=== PATIENT | male | born 1995 | race Caucasian/White ===

== ENCOUNTER 2022-08-08 17:17 | Emergency (ER) | payer MEDICAID, SELFPAY ==
--- NOTE | ~2022-08-08 | US_ITS ---
EXAMINATION: US SCROTUM CLINICAL INFORMATION: Scrotal pain. COMPARISON: None TECHNIQUE: A sonogram of the scrotum was performed assessing darby-scale appearance and color Doppler flow. Spectral Doppler analysis of the arterial and venous flow were performed in the testes bilaterally. FINDINGS: RIGHT: Right testicle measures 3.9 x 1.8 x 2.4 cm, volume 8.9 mL. No focal testicular parenchymal lesions are visualized. Spectral Doppler analysis of the arterial and venous flow is normal in the right testis. Right epididymal head is normal in size. There is a 0.2 cm right epididymal head cyst. No right hydrocele or varicocele is seen. Right epididymal Doppler flow is normal. LEFT: Left testicle measures 4.0 x 1.9 x 2.2 cm, volume 8.4 mL. No focal testicular parenchymal lesions are visualized. Spectral Doppler analysis of the arterial and venous flow is normal in the left testis. Left epididymal head is normal in size. No left hydrocele or varicocele is seen. Left epididymal Doppler flow is normal. US/US scrotum doppler IMPRESSION: No acute findings identified.
--- NOTE | ~2022-08-08 | US_ITS ---
EXAMINATION: US SCROTUM CLINICAL INFORMATION: Scrotal pain. COMPARISON: None TECHNIQUE: A sonogram of the scrotum was performed assessing darby-scale appearance and color Doppler flow. Spectral Doppler analysis of the arterial and venous flow were performed in the testes bilaterally. FINDINGS: RIGHT: Right testicle measures 3.9 x 1.8 x 2.4 cm, volume 8.9 mL. No focal testicular parenchymal lesions are visualized. Spectral Doppler analysis of the arterial and venous flow is normal in the right testis. Right epididymal head is normal in size. There is a 0.2 cm right epididymal head cyst. No right hydrocele or varicocele is seen. Right epididymal Doppler flow is normal. LEFT: Left testicle measures 4.0 x 1.9 x 2.2 cm, volume 8.4 mL. No focal testicular parenchymal lesions are visualized. Spectral Doppler analysis of the arterial and venous flow is normal in the left testis. Left epididymal head is normal in size. No left hydrocele or varicocele is seen. Left epididymal Doppler flow is normal. US/US scrotum IMPRESSION: No acute findings identified.
--- NOTE | ~2022-08-08 | CT_ITS ---
EXAMINATION: CT ABDOMEN AND PELVIS WITH CONTRAST CLINICAL INFORMATION: Rectal pain COMPARISON: None TECHNIQUE: Multidetector volumetric images were obtained from the superior aspect of the liver through the pubic symphysis following administration 85 mL of Omnipaque 350 intravenous contrast. Sagittal and coronal reformatted images were obtained on the technologist's workstation. Oral contrast: No This CT examination was performed using dose optimization techniques as appropriate, variously including the following: *Automated exposure control *Adjustment of mA and/or kV according to patient size (this includes techniques or standardized protocols for targeted exams where dose is matched to indication/reason for exam; i.e. extremities or head) *Use of iterative reconstruction technique DLP: 621 mGy-cm FINDINGS: LUNG BASES: The visualized lung bases are unremarkable. LIVER, GALLBLADDER, AND BILIARY TREE: The liver is normal in size, shape, and attenuation. No focal hepatic lesion or biliary ductal dilatation is present. The gallbladder is unremarkable with no evidence of radiopaque gallstones, gallbladder wall thickening, or obvious pericholecystic inflammatory changes. PANCREAS: Unremarkable. SPLEEN: Unremarkable. ADRENAL GLANDS: Unremarkable. KIDNEYS AND URETERS: The kidneys are normal in size, shape, and attenuation. No hydronephrosis, hydroureter, or calculi seen. No perinephric stranding. BLADDER: Unremarkable. GASTROINTESTINAL TRACT: No evidence of bowel obstruction or significant wall thickening. The appendix is nondilated. No free fluid or free air is seen. ABDOMINAL WALL: No significant hernia is appreciated. LYMPH NODES: Normal. VASCULAR: Unremarkable. PELVIC VISCERA: Unremarkable. OSSEOUS STRUCTURES: Unremarkable. CT/CT abdomen pelvis w IV con IMPRESSION: No acute findings identified in the abdomen/pelvis.
[2022-08-08 17:52] VITALS: BP 136/74; PULSE 78; RESP 16; TEMP 36.4; O2SAT 97; BMI 25.8
--- NOTE | 2022-08-08 17:55 | ED_ITS ---
HPI - General Adult General Chief complaint: General Medical <RAJESH Gibbs Last Filed: 08/14/22 12:36> Stated complaint: pain/ tenderness in prostrate area <ARJESH Gibbs Last Filed: 08/14/22 12:36> Time Seen by Provider: 08/09/22 00:26 <RAJESH Gibbs Last Filed: 08/14/22 12:36> Source: patient <RAJESH Otoole Last Filed: 08/09/22 01:04> Mode of arrival: ambulatory <RAJESH Otoole Last Filed: 08/09/22 01:04> Limitations: no limitations <RAJESH Otoole Last Filed: 08/09/22 01:04> History of Present Illness HPI narrative: This is a 26-year-old male to female transgender, anxiety, depression presenting to the emergency department with pain to rectum and pain to genital area that started suddenly about a week ago has been progressively worsening. Describes pain that is worse at night. She tells me that her rectal pain is very uncomfortable to palpation, she tells me it is very uncomfortable when she hits bumps in the road. Reports diffuse pain and discomfort to entire genital region. Patient reports that it just does not feel right down there. Patient currently did receiving estradiol every 5 days. Reports urinary frequency, urgency and dysuria. Denies fevers, chills, flank pain, nausea, vomiting, abdominal pain, headache, vision changes, dizziness, chest pain, shortness of breath. Patient denies any foreign bodies and rectum <RAJESH Otoole Last Filed: 08/09/22 01:04> Related Data Allergies/adverse reactions: Allergies Allergy/AdvReac Type Severity Reaction Status Date / Time No Known Allergies Allergy Verified 08/08/22 17:49 <RAJESH Gibbs Last Filed: 08/14/22 12:36> Review of Systems Review of Systems: Constitutional : No Weight loss, No Fever, No Chills, No Fatigue, No Malaise ENT/Mouth : No sore throat, No Rhinorrhea Eyes: No Eye Pain, No Swelling, No Redness Cardiovascular : No Chest Pain, No SOB, No Dyspnea on Exertion, No Orthopnea, No Edema, No Palpitations Respiratory : No Cough, No Sputum, No Wheezing Gastrointestinal : No Nausea, No Vomiting, No Diarrhea, No Constipation, No abdominal Pain, No Hematochezia, No Melena Genitourinary : No Dysuria, No Urinary Frequency, No Hematuria, + peritoneal pain, + rectal pain Musculoskeletal : No joint pain, No Myalgias, No Joint Swelling Skin : No Skin Lesions, No rash Neuro : No Weakness, No Numbness, No Dizziness, No Headache Psych : No Anxiety/Panic, No Depression All other systems reviewed and are negative <RAJESH Otoole - Last Filed: 08/09/22 01:04> Yes all other systems are reviewed and are negative <RAJESH Otoole - Last Filed: 08/09/22 01:04> REPLACED BY [facility] Past Medical History Attestation statement: The following information was validated with the patient. <RAJESH Otoole - Last Filed: 08/09/22 01:04> Source: old records reviewed and nursing notes reviewed <RAJESH Otoole - Last Filed: 08/09/22 01:04> Social History Social History: Social History Smoked in Last 30 Days: No Use of substances other than those prescribed or required for medical reasons: No Advance Directives: No Advance Directives Information Provided: Yes <RAJESH Gibbs - Last Filed: 08/14/22 12:36> Physical Exam ED Vital Signs: Vital Signs - 24 hr 08/08/22 17:52 08/09/22 00:52 Temperature 97.5 F 98.0 F Pulse Rate 78 71 Respiratory Rate 16 17 Blood Pressure 136/74 117/69 Pulse Oximetry 97 99 Oxygen Delivery Method Room Air Room Air BMI result Body Mass Index 25.8 <RAJESH Gibbs - Last Filed: 08/14/22 12:36> Vital Signs - 24 hr 08/08/22 17:52 08/09/22 00:52 Temperature 97.5 F 98.0 F Pulse Rate 78 71 Respiratory Rate 16 17 Blood Pressure 136/74 117/69 Pulse Oximetry 97 99 Oxygen Delivery Method Room Air Room Air BMI result Body Mass Index 25.8 vss <RAJESH Otoole - Last Filed: 08/09/22 01:04> Appearance: Alert.? Oriented X3.? No acute distress.? Head: Normocephalic, atraumatic, no step-offs or deformities Eyes: Pupils equal, round and reactive to light.? ENT: Pharynx normal.? Neck: Normal inspection.? Neck supple.? CVS: Normal heart rate and rhythm.? Pulses normal.? Respiratory: No respiratory distress.? Breath sounds normal.? Abdomen: Soft and nontender.? Skin: Skin warm and dry.? Normal skin color.? Normal skin turgor.? Extremities: No lower extremity edema.? No calf ttp. 5/5 strength to bilateral upper and lower extremities Sensitive exam: With normal male external genitalia, tenderness to palpation to bilateral epididymis, scrotum, penile shaft. No overlying skin changes. Normal rectal exam. No hemorrhoids internally or externally, no overlying lesions. Back: No midline tenderness, no C-spine tenderness, full range of motion, no CVA tenderness bilaterally Neuro: Oriented X 3.? No motor deficit.? No sensory deficit. CN 2-12 intact <RAJESH Otoole - Last Filed: 08/09/22 01:04> Course Course Course Narrative: RME: 26 yold transfemale patient presents to the ED for rectal pain, dysuria, perinuem pain. feels like pain in prostate. patient wants to be called KIT. Not able to do physical exam in the triage. uA ordered. <RAJESH Gibbs - Last Filed: 08/14/22 12:36> Reevaluation(s) Reevaluation #1: Patient's urine is clean. CBC unremarkable. Chemistry pending. Sign out given [facility] doctor Dr. Alonso <RAJESH Otoole - Last Filed: 08/09/22 01:04> Time: 01:04 <RAJESH Otoole - Last Filed: 08/09/22 01:04> Medications Administered Discontinued Medications Generic Name Dose Route Start Last Admin Trade Name Freq PRN Reason Stop Dose Admin Iohexol 85 ml 08/09/22 01:49 08/09/22 01:50 Iohexol 350 Mg/Ml 100 Ml Infus..Btl IV 08/09/22 01:50 85 ml ONCE ONE Administration Ketorolac Tromethamine 30 mg 08/09/22 01:02 08/09/22 01:45 Ketorolac Tromethamine 15 Mg/Ml Vial IVPUSH 08/09/22 01:03 30 mg ONCE ONE Administration <RAJESH Gibbs Last Filed: 08/14/22 12:36> Medications Administered Discontinued Medications Generic Name Dose Route Start Last Admin Trade Name Kenroy PRN Reason Stop Dose Admin Iohexol 85 ml 08/09/22 01:49 08/09/22 01:50 Iohexol 350 Mg/Ml 100 Ml Infus..Btl IV 08/09/22 01:50 85 ml ONCE ONE Administration Ketorolac Tromethamine 30 mg 08/09/22 01:02 08/09/22 01:45 Ketorolac Tromethamine 15 Mg/Ml Vial IVPUSH 08/09/22 01:03 30 mg ONCE ONE Administration <RAJESH Otoole Last Filed: 08/09/22 01:04> Medical Decision Making Medical Decision Making [facility] Narrative: [id number] 26-year-old male to female transgender presents with pain to scrotum, rectal pain, pain to penis times a week worsening. Physical exam significant with tenderness to palpation of scrotum, penis, epididymis bilaterally. Rectal discomfort with palpation denies. No other findings on rectal exam Concerns for possible UTI versus epididymitis. History and physical examination less concerning for torsion. Will obtain gonorrhea and chlamydia test at this time as well. Plan at this time basic labs, imaging, urine, basic STD testing. <RAJESH Otoole Last Filed: 08/09/22 01:04> Differential Diagnosis Differential Diagnoses: The differential diagnosis associated with the presentation includes <RAJESH Otoole Last Filed: 08/09/22 01:04> Concerns for possible UTI versus epididymitis. History and physical ex amination less concerning for torsion. Will obtain gonorrhea and chlamydia test at this time as well. <RAJESH Otoole Last Filed: 08/09/22 01:04> Admission/Observation Consideration of admission/observation: Escalation of care including admission/observation considered <RAJESH Otoole Last Filed: 08/09/22 01:04> Lab Data Result Diagrams: 08/09/22 00:41 08/09/22 00:41 <RAJESH Gibbs - Last Filed: 08/14/22 12:36> Labs: Lab Results 08/09/22 08/09/22 08/09/22 Range/Units 00:41 00:41 00:41 WBC 8.2 (4.8-10.8) X10*3/uL RBC 4.74 (4.60-5.80) X10*6/uL Hgb 13.7 L (14.0-18.0) g/dl Hct 39.0 L (42.0-52.0) % MCV 82.3 (80.0-98.0) fL MCH 28.9 (27.0-33.0) pg MCHC 35.1 (31.0-36.0) g/dl RDW 11.8 (11.0-16.0) % Plt Count 245 (160-400) X10*3/uL MPV 9.2 L (9.4-12.4) fL Immature Gran % (Auto) 0.4 (0.0-0.4) % Neut % (Auto) 72.4 (45-73) % Lymph % (Auto) 17.3 L (20-40) % [place] % (Auto) 8.0 (2-11) % Eos % (Auto) 1.7 (0-4) % Baso % (Auto) 0.2 (0-2) % Lymph # (Auto) 1.4 (1.2-4.9) X10*3/uL [place] # (Auto) 0.7 (0.1-1.2) X10*3/uL Eos # (Auto) 0.1 (0.0-0.4) X10*3/uL Baso # (Auto) 0.0 (0.0-0.2) X10*3/uL Abs Immat Gran (auto) 0.03 (0.00-0.03) X10*3/uL Absolute Neuts (auto) 6.0 (2.0-8.3) x10*3/uL Absolute Nucleated RBC 0.000 (0.0-0.012) X10*3/uL Nucleated RBC % (auto) 0.0 (0.0-0.2) /100WBC Sodium 138 (135-145) mmol/L Potassium 3.4 (3.3-5.1) mmol/L Chloride 104 (96-108) mmol/L Carbon Dioxide 25 (22-29) mmol/L Anion Gap 12 (12-20) BUN 13 (9-16) mg/dL Creatinine 1.03 (0.5-1.4) mg/dL Estim Creat Clear Calc 106.7 Estimated GFR > 60 Random Glucose 116 H (60-115) mg/dL Calcium 8.8 (8.4-10.2) mg/dL Magnesium 2.0 (1.6-2.6) mg/dL Total Bilirubin 0.4 (0.0-1.0) mg/dL AST 15 (5-37) U/L ALT 12 (0-40) U/L Alkaline Phosphatase 69 (39-117) U/L Total Protein 6.6 (6.5-8.0) g/dL Albumin 4.2 (3.5-5.0) g/dL Lipase 18 (8-78) U/L Urine Color Urine Appearance Urine pH (5.0-9.0) Ur Specific [place] (1.005-1.025) Urine Protein (Neg-Trace) mg/dL Urine Glucose (UA) (Negative) mg/dL Urine Ketones (Negative) mg/dL Urine Blood (Negative) Urine Nitrite (Negative) Ur Leukocyte Esterase (Negative) Chlam trachomat DNA PCR (Not Detect.) COVID-19 (KANDI) Negative (Negative) COVID-19 Clin Com See Note N.gonorrhoeae DNA (PCR) (Not Detect.) 08/09/22 08/09/22 08/09/22 Range/Units 00:41 01:02 01:02 WBC (4.8-10.8) X10*3/uL RBC (4.60-5.80) X10*6/uL Hgb (14.0-18.0) g/dl Hct (42.0-52.0) % MCV (80.0-98.0) fL MCH (27.0-33.0) pg MCHC (31.0-36.0) g/dl RDW (11.0-16.0) % Plt Count (160-400) X10*3/uL MPV (9.4-12.4) fL Immature Gran % (Auto) (0.0-0.4) % Neut % (Auto) (45-73) % Lymph % (Auto) (20-40) % [place] % (Auto) (2-11) % Eos % (Auto) (0-4) % Baso % (Auto) (0-2) % Lymph # (Auto) (1.2-4.9) X10*3/uL [place] # (Auto) (0.1-1.2) X10*3/uL Eos # (Auto) (0.0-0.4) X10*3/uL Baso # (Auto) (0.0-0.2) X10*3/uL Abs Immat Gran (auto) (0.00-0.03) X10*3/uL Absolute Neuts (auto) (2.0-8.3) x10*3/uL Absolute Nucleated RBC (0.0-0.012) X10*3/uL Nucleated RBC % (auto) (0.0-0.2) /100WBC Sodium (135-145) mmol/L Potassium (3.3-5.1) mmol/L Chloride (96-108) mmol/L Carbon Dioxide (22-29) mmol/L Anion Gap (12-20) BUN (9-16) mg/dL Creatinine (0.5-1.4) mg/dL Estim Creat Clear Calc Estimated GFR Random Glucose (60-115) mg/dL Calcium (8.4-10.2) mg/dL Magnesium (1.6-2.6) mg/dL Total Bilirubin (0.0-1.0) mg/dL AST (5-37) U/L ALT (0-40) U/L Alkaline Phosphatase (39-117) U/L Total Protein (6.5-8.0) g/dL Albumin (3.5-5.0) g/dL Lipase (8-78) U/L Urine Color Yellow Yellow Urine Appearance Clear Clear Urine pH 5.5 5.5 (5.0-9.0) Ur Specific [place] 1.025 1.025 (1.005-1.025) Urine Protein Negative Negative (Neg-Trace) mg/dL Urine Glucose (UA) Negative Negative (Negative) mg/dL Urine Ketones Negative Negative (Negative) mg/dL Urine Blood Negative Negative (Negative) Urine Nitrite Negative Negative (Negative) Ur Leukocyte Esterase Negative Negative (Negative) Chlam trachomat DNA PCR NOT DETECTED (Not Detect.) COVID-19 (KANDI) (Negative) COVID-19 Clin Com N.gonorrhoeae DNA (PCR) NOT DETECTED (Not Detect.) <RAJESH Gibbs - Last Filed: 08/14/22 12:36> Lab Results 08/09/22 08/09/22 08/09/22 Range/Units 00:41 00:41 00:41 WBC 8.2 (4.8-10.8) X10*3/uL RBC 4.74 (4.60-5.80) X10*6/uL Hgb 13.7 L (14.0-18.0) g/dl Hct 39.0 L (42.0-52.0) % MCV 82.3 (80.0-98.0) fL MCH 28.9 (27.0-33.0) pg MCHC 35.1 (31.0-36.0) g/dl RDW 11.8 (11.0-16.0) % Plt Count 245 (160-400) X10*3/uL MPV 9.2 L (9.4-12.4) fL Immature Gran % (Auto) 0.4 (0.0-0.4) % Neut % (Auto) 72.4 (45-73) % Lymph % (Auto) 17.3 L (20-40) % [place] % (Auto) 8.0 (2-11) % Eos % (Auto) 1.7 (0-4) % Baso % (Auto) 0.2 (0-2) % Lymph # (Auto) 1.4 (1.2-4.9) X10*3/uL [place] # (Auto) 0.7 (0.1-1.2) X10*3/uL Eos # (Auto) 0.1 (0.0-0.4) X10*3/uL Baso # (Auto) 0.0 (0.0-0.2) X10*3/uL Abs Immat Gran (auto) 0.03 (0.00-0.03) X10*3/uL Absolute Neuts (auto) 6.0 (2.0-8.3) x10*3/uL Absolute Nucleated RBC 0.000 (0.0-0.012) X10*3/uL Nucleated RBC % (auto) 0.0 (0.0-0.2) /100WBC Sodium 138 (135-145) mmol/L Potassium 3.4 (3.3-5.1) mmol/L Chloride 104 (96-108) mmol/L Carbon Dioxide 25 (22-29) mmol/L Anion Gap 12 (12-20) BUN 13 (9-16) mg/dL Creatinine 1.03 (0.5-1.4) mg/dL Estim Creat Clear Calc 106.7 Estimated GFR > 60 Random Glucose 116 H (60-115) mg/dL Calcium 8.8 (8.4-10.2) mg/dL Magnesium 2.0 (1.6-2.6) mg/dL Total Bilirubin 0.4 (0.0-1.0) mg/dL AST 15 (5-37) U/L ALT 12 (0-40) U/L Alkaline Phosphatase 69 (39-117) U/L Total Protein 6.6 (6.5-8.0) g/dL Albumin 4.2 (3.5-5.0) g/dL Lipase 18 (8-78) U/L Urine Color Urine Appearance Urine pH (5.0-9.0) Ur Specific [place] (1.005-1.025) Urine Protein (Neg-Trace) mg/dL Urine Glucose (UA) (Negative) mg/dL Urine Ketones (Negative) mg/dL Urine Blood (Negative) Urine Nitrite (Negative) Ur Leukocyte Esterase (Negative) Chlam trachomat DNA PCR (Not Detect.) COVID-19 (KANDI) Negative (Negative) COVID-19 Clin Com See Note N.gonorrhoeae DNA (PCR) (Not Detect.) 08/09/22 08/09/22 08/09/22 Range/Units 00:41 01:02 01:02 WBC (4.8-10.8) X10*3/uL RBC (4.60-5.80) X10*6/uL Hgb (14.0-18.0) g/dl Hct (42.0-52.0) % MCV (80.0-98.0) fL MCH (27.0-33.0) pg MCHC (31.0-36.0) g/dl RDW (11.0-16.0) % Plt Count (160-400) X10*3/uL MPV (9.4-12.4) fL Immature Gran % (Auto) (0.0-0.4) % Neut % (Auto) (45-73) % Lymph % (Auto) (20-40) % [place] % (Auto) (2-11) % Eos % (Auto) (0-4) % Baso % (Auto) (0-2) % Lymph # (Auto) (1.2-4.9) X10*3/uL [place] # (Auto) (0.1-1.2) X10*3/uL Eos # (Auto) (0.0-0.4) X10*3/uL Baso # (Auto) (0.0-0.2) X10*3/uL Abs Immat Gran (auto) (0.00-0.03) X10*3/uL Absolute Neuts (auto) (2.0-8.3) x10*3/uL Absolute Nucleated RBC (0.0-0.012) X10*3/uL Nucleated RBC % (auto) (0.0-0.2) /100WBC Sodium (135-145) mmol/L Potassium (3.3-5.1) mmol/L Chloride (96-108) mmol/L Carbon Dioxide (22-29) mmol/L Anion Gap (12-20) BUN (9-16) mg/dL Creatinine (0.5-1.4) mg/dL Estim Creat Clear Calc Estimated GFR Random Glucose (60-115) mg/dL Calcium (8.4-10.2) mg/dL Magnesium (1.6-2.6) mg/dL Total Bilirubin (0.0-1.0) mg/dL AST (5-37) U/L ALT (0-40) U/L Alkaline Phosphatase (39-117) U/L Total Protein (6.5-8.0) g/dL Albumin (3.5-5.0) g/dL Lipase (8-78) U/L Urine Color Yellow Yellow Urine Appearance Clear Clear Urine pH 5.5 5.5 (5.0-9.0) Ur Specific [place] 1.025 1.025 (1.005-1.025) Urine Protein Negative Negative (Neg-Trace) mg/dL Urine Glucose (UA) Negative Negative (Negative) mg/dL Urine Ketones Negative Negative (Negative) mg/dL Urine Blood Negative Negative (Negative) Urine Nitrite Negative Negative (Negative) Ur Leukocyte Esterase Negative Negative (Negative) Chlam trachomat DNA PCR NOT DETECTED (Not Detect.) COVID-19 (KANDI) (Negative) COVID-19 Clin Com N.gonorrhoeae DNA (PCR) NOT DETECTED (Not Detect.) <RAJESH Otoole - Last Filed: 08/09/22 01:04> Core Measures AMI core measures followed: Yes <RAJESH Otoole - Last Filed: 08/09/22 01:04> Measure exclusions: not indicated <RAJESH Otoole - Last Filed: 08/09/22 01:04> Critical Care Time Critical Care Time Critical Care Time: No <RAJESH Otoole - Last Filed: 08/09/22 01:04> Discharge Plan Discharge Clinical Impression: Pain of male genitalia, Dysuria <RAJESH Gibbs - Last Filed: 08/14/22 12:36> Patient Disposition: Home, Self-Care <RAJESH Gibbs - Last Filed: 08/14/22 12:36> Instructions: Scrotal Pain (ED) <RAJESH Gibbs - Last Filed: 08/14/22 12:36> Additional Instructions: cause of your pain is not clear Your CT scan and ultrasounds are normal Follow-up with nutrition technician and Urology Ibuprofen or pain <RAJESH Gibbs - Last Filed: 08/14/22 12:36> Referrals: Adelso Cadena MD [Physician] - 1 week Tong Dobbins [Physician] - 1 week <RAJESH Gibbs - Last Filed: 08/14/22 12:36> Interventions: ED Discharge Assessment Last Done: 08/09/22 03:16 <RAJESH Gibbs Last Filed: 08/14/22 12:36> Discharge Date/Time: 08/09/22 03:18 <RAJESH Gibbs - Last Filed: 08/14/22 12:36>
[2022-08-09 00:48] LABS: MANUAL DIFF FLAG NO
[2022-08-09 00:51] LABS: Appearance Urine Clear; Color Urine Yellow; Glucose Urine UA Negative (Negative); Leukocyte Esterase Urine Negative (Negative); Nitrite Urine Negative (Negative); PH 5.5 (5.0-9.0); Specific Gravity - Urine 1.025 (1.005-1.025); Urine Blood Negative (Negative); Urine Ketones Negative (Negative); Urine Protein Negative (Neg-Trace)
[2022-08-09 00:52] VITALS: BP 117/69; PULSE 71; RESP 17; TEMP 36.7; O2SAT 99
[2022-08-09 00:57] LABS: Basophils Percent Auto 0.2 % (0-2); Eosinophils Absolute Auto 0.1 X10*3/uL (0.0-0.4); Eosinophils Percent Auto 1.7 % (0-4); Hemoglobin 13.7 g/dl (14.0-18.0); Imm Gran Abs Auto 0.03 X10*3/uL (0.00-0.03); Imm Gran Pct Auto 0.4 % (0.0-0.4); Lymphocytes Absolute Auto 1.4 X10*3/uL (1.2-4.9); Lymphocytes Percent Auto 17.3 % (20-40); Mean Corpuscular HGB Conc 35.1 g/dl (31.0-36.0); Mean Corpuscular Hemoglobin 28.9 pg (27.0-33.0); Mean Corpuscular Volume 82.3 fL (80.0-98.0); Mean Platelet Volume 9.2 fL (9.4-12.4); Monocytes Absolute Auto 0.7 X10*3/uL (0.1-1.2); Neutrophils Percent Auto 72.4 % (45-73); Platelet Count 245 X10*3/uL (160-400); Red Blood Count 4.74 X10*6/uL (4.60-5.80); Red Cell Distribution Width 11.8 % (11.0-16.0); White Blood Count 8.2 X10*3/uL (4.8-10.8)
[2022-08-09 01:02] LABS: COVID-19 Test Negative (Negative); IDNOW Serial# 6674DD1D
--- NOTE | 2022-08-09 01:06 | PC.NURSE ---
this rn placed iv in L AC. pt tolerated well. partner at bedside. bloodwork obtained, urine obtained, and sent down to lab.
[2022-08-09 01:09] LABS: Appearance Urine Clear; Color Urine Yellow; Glucose Urine UA Negative (Negative); Leukocyte Esterase Urine Negative (Negative); Nitrite Urine Negative (Negative); PH 5.5 (5.0-9.0); Specific Gravity - Urine 1.025 (1.005-1.025); Urine Blood Negative (Negative); Urine Ketones Negative (Negative); Urine Protein Negative (Neg-Trace)
[2022-08-09 01:10] LABS: Alanine Aminotransferase 12 U/L (0-40); Albumin Level 4.2 g/dL (3.5-5.0); Alkaline Phosphatase 69 U/L (39-117); Anion Gap 12 (12-20); Aspartate Amino Transferase 15 U/L (5-37); Bilirubin Total 0.4 mg/dL (0.0-1.0); Blood Urea Nitrogen 13 mg/dL (9-16); Calcium 8.8 mg/dL (8.4-10.2); Carbon Dioxide 25 mmol/L (22-29); Chloride 104 mmol/L (96-108); Creatinine Clr Calc Pharmacy 106.7; Estimated Glomerular Filt Rate > 60; Glucose Random 116 mg/dL (60-115); Lipase 18 U/L (8-78); Potassium 3.4 mmol/L (3.3-5.1); Sodium 138 mmol/L (135-145); Total Protein 6.6 g/dL (6.5-8.0)
[2022-08-09] MEDS: Ketorolac Tromethamine 15 MG/ML VIAL 30 MG IVPUSH (01:45)
--- NOTE | 2022-08-09 01:48 | PC.NURSE ---
pt returned back from imaging. partner at bedside. pt medicated according to mar
[2022-08-09] MEDS: iohexoL 350 MG/ML 100 ML INFUS..BTL 85 ML IV (01:50)
[2022-08-09 03:03] VITALS: BP 124/74; PULSE 79; RESP 14; TEMP 36.7; O2SAT 96
--- NOTE | 2022-08-09 03:09 | PC.NURSE ---
pt ambulatory at discharge. iv removed. skin pwd. vss. partner at bedside. pt provided with discharge packet. pt verbalized understanding of discharge plan
[2022-08-09 05:36] LABS: CT PCR NOT DETECTED (Not Detect.); NG PCR NOT DETECTED (Not Detect.)
== END 2022-08-09 03:18 | disposition home or self-care (01) ==
PROVIDERS: Physician Assistant; Emergency Provider Internal Medicine
DX: N50.82 Scrotal pain (principal); R30.0 Dysuria; K62.89 Other specified diseases of anus and rectum; Z20.822 Contact with and (suspected) exposure to COVID-19; F64.0 Transsexualism; Z79.890 Hormone replacement therapy
CPT/HCPCS: 0353U; 74177; 76870; 80053; 81003; 83690; 83735; 85025; 87635; 93975; 96374; 99284; J1885; Q9967